=== PATIENT | female | born 1990 | race Hispanic/Latino ===

== ENCOUNTER 2017-08-13 20:02 | Emergency (ER) | payer BC, MEDICAID, OTHER ==
[2017-08-13 20:02] VITALS: BMI 20.9
[2017-08-13 20:11] VITALS: BP 117/82; PULSE 96; TEMP 98.6; O2SAT 100
[2017-08-13 20:13] VITALS: RESP 16
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
== END 2017-08-13 21:26 | disposition home or self-care (01) ==
LOC: H.ER 20:02
DX: S20.212A Contusion of left front wall of thorax, initial encounter (principal); F17.210 Nicotine dependence, cigarettes, uncomplicated; Z86.59 Personal history of other mental and behavioral disorders
CPT/HCPCS: 81025; 96372; 99283; J1885